=== PATIENT | male | born 2000 | race Caucasian/White ===

== ENCOUNTER 2023-11-12 15:06 | Emergency (ER) | payer MEDICAID ==
[~2023-11-12] VITALS: Ht 185.4 cm; Wt 129.6 kg
[2023-11-12 15:25] VITALS: BP 127/84; PULSE 79; RESP 18; TEMP 97.8; O2SAT 96
== END 2023-11-12 17:10 | disposition home or self-care (01) ==
LOC: ER 15:08
DX: S93.401A Sprain of unspecified ligament of right ankle, initial encounter (principal); Z88.6 Allergy status to analgesic agent; X50.1XXA Overexertion from prolonged static or awkward postures, initial encounter; Y93.89 Activity, other specified; Y92.89 Other specified places as the place of occurrence of the external cause; Y99.8 Other external cause status
CPT/HCPCS: 73610; 99283; A6449

== ENCOUNTER 2024-05-06 11:05 | Emergency (ER) | payer MEDICAID ==
[~2024-05-06] VITALS: Ht 177.8 cm; Wt 122.1 kg
[2024-05-06] MEDS ORDERED: PRED10TA23 PO (11:59)
[2024-05-06] MEDS ORDERED: AMOX500C7 PO (11:59)
[2024-05-06] MEDS: amoxicillin 250mg capsule PO ONE (12:14)
[2024-05-06] MEDS: predniSONE 5mg tablet PO ONE (12:15)
[2024-05-06 12:19] VITALS: BP 124/77; PULSE 67; RESP 16; TEMP 98; O2SAT 96
== END 2024-05-06 12:21 | disposition home or self-care (01) ==
LOC: ER 11:06
DX: J32.9 Chronic sinusitis, unspecified (principal); J22 Unspecified acute lower respiratory infection; Z88.8 Allergy status to other drugs, medicaments and biological substances; Z79.2 Long term (current) use of antibiotics; Z79.52 Long term (current) use of systemic steroids
CPT/HCPCS: 99283; J7512

== ENCOUNTER 2024-06-24 13:44 | Emergency (ER) | payer MEDICAID ==
[~2024-06-24] VITALS: Ht 185.4 cm; Wt 125.9 kg
[2024-06-24 13:49] VITALS: TEMP 98
[2024-06-24] MEDS: dexamethasone sod phosphate 10mg/ml inj IM STA (15:34)
[2024-06-24] MEDS ORDERED: PRED20TA PO (15:35)
[2024-06-24] MEDS ORDERED: LIDO700A32 TOP (15:35)
[2024-06-24] MEDS ORDERED: HYDR-3965 PO (15:35)
[2024-06-24 15:48] VITALS: BP 105/68; PULSE 71; RESP 16; O2SAT 98
== END 2024-06-24 16:01 | disposition home or self-care (01) ==
LOC: ER 13:45
DX: M54.6 Pain in thoracic spine (principal); Z88.6 Allergy status to analgesic agent
CPT/HCPCS: 96372; 99283; J1100